=== PATIENT | male | born 1945 | race Caucasian/White ===

== ENCOUNTER → 2017-12-06 | Outpatient (CLI) | payer MEDICARE ==
--- NOTE | 2017-12-06 11:57 | MR ---
EXAMINATION TYPE: MR knee RT wo con DATE OF EXAM: 12/06/2017 COMPARISON: Plain film right knee advanced orthopedics dated 11/20/2017 HISTORY: Right knee pain TECHNIQUE: Multiplanar, multisequence imaging of the right knee is performed without IV contrast. FINDINGS: MEDIAL MENISCUS: There is increased signal within the substance of the posterior horn medial meniscus compatible some internal derangement. Anterior horn medial meniscus appears intact. LATERAL MENISCUS: Mild increased signals within the anterior and posterior horns lateral meniscus. Fi ndings could be related to some degenerative change or internal derangement. CRUCIATE LIGAMENTS: The anterior and posterior cruciate ligaments are intact and unremarkable. COLLATERAL LIGAMENTS: The medial collateral ligament and lateral collateral ligament complex are inta ct and unremarkable. EXTENSOR MECHANISM: Visualized quadriceps and patellar tendons are intact. EFFUSION: No significant suprapatellar joint effusion. POPLITEAL CYST: Popliteal cyst is present measuring approximately 1.7 x 5.4 cm. Multiple internal fi lling defects are evident. TRICOMPARTMENT SPACES: Medial and lateral compartments appear preserved. There is loss of the patello femoral joint space. CARTILAGE: There is loss of the patellar cartilage. Posterior superior posterior inferior patellar sp urring is present. The articular cartilage along the patellofemoral joint space on the femur appears intact. Medial and lateral compartment articular cartilage appears intact. BONE MARROW SIGNAL: No focal abnormal marrow signal is appreciated. OTHER: No additional significant abnormality is appreciated. IMPRESSION: 1. Popliteal cyst with multiple internal filling defects. Findings correlate with the plain film calc ifications. 2. Internal derangement posterior horn medial meniscus and to a lesser degree anterior and posterior horns lateral meniscus. 3. Severe loss of the posterior patellar articular cartilage. Remaining articular surfaces have a nor mal appearance.
== END | disposition home or self-care (01) ==
LOC: RADMRIMAIN 10:48
PROVIDERS: ATTEND Orthopaedic Surgery
DX: M71.21 Synovial cyst of popliteal space [Baker], right knee (principal); M23.321 Other meniscus derangements, posterior horn of medial meniscus, right knee; M23.341 Other meniscus derangements, anterior horn of lateral meniscus, right knee; M23.351 Other meniscus derangements, posterior horn of lateral meniscus, right knee; M94.8X6 Other specified disorders of cartilage, lower leg

== ENCOUNTER 2018-10-03 07:58 | Day surgery (SDC) | payer MEDICARE ==
[~2018-10-03 07:58] MED LIST: ALPRAZolam 0.25 MG TAB PO PRN; ALPRAZolam 0.5 MG TAB PO PRN; ASPIRIN 325 MG TAB PO STA; ATORVASTATIN 80 MG TAB PO STA; NITROGLYCERIN SL TABS 0.4 MG TAB SUBLINGUAL PRN; SODIUM CHLORIDE 0.9% 1,000 ML in EMPTY BAG 1 BAG IV ONE
[2018-10-03 09:00] LABS: Calcium 9.3 mg/dL (8.4-10.2); Potassium 4.1 mmol/L (3.5-5.1)
[2018-10-03 09:01] LABS: HCT 39.7 % (39.0-53.0); HGB 12.8 gm/dL (13.0-17.5); MCH 29.8 pg (25.0-35.0); MCHC 32.3 g/dL (31.0-37.0); MCV 92.1 fL (80.0-100.0); Mean Platelet Volume 6.8; Platelet Count 166 k/uL (150-450); RBC 4.32 m/uL (4.30-5.90); RDW 14.2 % (11.5-15.5); WBC 4.7 k/uL (3.8-10.6)
[2018-10-03] MEDS ORDERED: LIDOCAINE 1% INJ 10MG/ML (20 ML MDV) ONE (09:04)
[2018-10-03] MEDS ORDERED: fentaNYL (PF) 50 MCG/ML 2 ML AMP ONE (09:05)
[2018-10-03 09:25] LABS: Basophils # (M) 0.05 k/uL (0-0.2); Eosinophils # (M) 0.05 k/uL (0-0.7); Lymphocytes # (M) 1.13 k/uL (1.0-4.8); Monocytes # (M) 0.47 k/uL (0-1.0); Neutrophils # (M) 3.01 k/uL (1.3-7.7); Neutrophils % (M) 64 %; Nucleated Red Blood Cells 0 /100 WBC (0-0); Total Cells Counted 100
[2018-10-03] MEDS: MIDAZOLAM 2 MG/2 ML VIAL IVP ONE ×2 (09:44→10:31)
[2018-10-03] MEDS ORDERED: fentaNYL (PF) 50 MCG/ML 2 ML AMP IVP ONE (09:45)
[2018-10-03] MEDS ORDERED: LIDOCAINE 1% INJ 10MG/ML (20 ML MDV) SQ ONE (09:49)
[2018-10-03] MEDS ORDERED: BIVALIRUDIN BOLUS 250 MG/50 ML IV ONE (10:37)
[2018-10-03] MEDS ORDERED: BIVALIRUDIN 250 MG in SODIUM CHLORIDE 0.9% 50 ML IV ONE (10:37)
--- NOTE | 2018-10-03 10:40 | CC ---
CARDIAC CATHETERIZATION REPORT This is a 73-year-old gentleman with history of known coronary artery disease, status post angioplasty of LAD in 2013, who recently presented to me with exertional shortness of breath associated with moderate exertion and a stress test that showed ischemia involving inferior wall due to which she was advised to undergo cardiac catheterization. The patient had been explained of risks, benefits and alternatives, understood and accepted. PROCEDURE NOTE: After obtaining informed consent, left heart catheterization and coronary angiogram are performed via the right femoral artery using standard Antonio catheter. The patient tolerated the procedure well without any obvious immediate complication. Patient received moderate conscious sedation and total sedation time was 15 minutes. FINDINGS: 1. HEMODYNAMICS: Left ventricular end-diastolic pressure is 12 to 14 mm. There is no significant gradient across the aortic valve. 2. LEFT VENTRICULOGRAM: Left ventriculogram is not performed. 3. ANGIOGRAPHIC DATA: Left Main Coronary Artery: Left main coronary artery appears calcified but is free of significant stenosis. Divides into left anterior descending coronary artery and circumflex coronary artery. LAD was previously stented in the midportion that appears patent. small caliber diagonal branch that shows moderate diffuse disease in the proximal part. Circumflex coronary artery is a codominant system. There are collaterals going from the left system to the distal RCA. It gives off a large caliber OM branch that shows a focal 95% stenosis. This has progressed significantly compared to the prior cardiac catheterization. Right coronary artery is a large vessel that is calcified and appears diffusely diseased. There are multiple areas of stenosis noted. The mid RCA shows a 40% to 50% stenosis. The distal RCA shows a 40% stenosis. Divides into PDA and PLV. PDA is a very small vessel. PLV is a large caliber vessel that bifurcates further. There are collaterals feeding the distal PLV and ostial portion of the PLV shows a 70% to 80% stenosis, but this is a fairly small caliber vessel and the whole RCA is diffusely diseased. CONCLUSIONS: Patent stent within the LAD, significant stenosis involving the ostial portion of the OM branch at its worst it seems to be a 90% to 95% stenosis and diffuse moderate to severe disease involving the right coronary artery. PLAN: I am going to review the angiographic data with Dr. Alexys Ahmadi the on-call congressional representative and consider angioplasty of the OM branch. I reviewed the angiographic data with the patient and talked to him about his treatment options. He understands and is in agreement with the plan. MMMARCUSL / IJN: [id number] /
--- NOTE | 2018-10-03 10:46 | LTR ---
October 03, 2018 Re: Von Ennis Dear Dmitriy: I performed cardiac catheterization on Von Ennis. A detailed catheterization note is enclosed for your records. In brief, the cardiac catheterization showed patent stent within the LAD, severe stenosis involving the OM branch and severe stenosis involving the right coronary artery. We will consider angioplasty of the OM branch at this time. Thank you for allowing me to participate in the care of this pleasant gentleman. Sincerely, MD ARNIE Allred / CRESENCIO: [id number] /
[2018-10-03] MEDS ORDERED: IOPAMIDOL-370 125ML BTL INJ ONE (10:48)
[2018-10-03] MEDS: NITROGLYCERIN 1000MCG/10ML SYRINGE INTRACORON ONE ×2 (11:12→11:14)
[2018-10-03] MEDS ORDERED: TICAGRELOR 90 MG TAB ONE (11:21)
[2018-10-03] MEDS ORDERED: TICAGRELOR 90 MG TAB PO ONE (11:23)
[2018-10-03] MEDS ORDERED: IOPAMIDOL-370 100ML BTL INJ ONE (11:24)
[2018-10-03] MEDS ORDERED: NITROGLYCERIN SL TABS 0.4 MG TAB SUBLINGUAL PRN (11:27)
[2018-10-03] MEDS ORDERED: MAG HYDROX/AL HYDROX/SIMETH 30 ML CUP PO PRN (11:27)
[2018-10-03] MEDS ORDERED: ZOLPIDEM 5 MG TAB PO PRN (11:27)
[2018-10-03] MEDS ORDERED: ATROPINE SULFATE 0.1 MG/ML 10ML SYRINGE IV PRN (11:27)
[2018-10-03] MEDS ORDERED: RX INFO: IV CONTRAST WAS GIVEN 1 EACH MISC MISCELLANE PRN (11:27)
--- NOTE | 2018-10-03 11:58 | PTCA ---
PERCUTANEOUSTRANS CORORONARY ANGIOGRAPHY DATE OF SERVICE: 10/03/2018. PROCEDURE: PTCA and stenting of a complex tortuous circumflex marginal coronary artery. PERFORMED BY: Dr. Tammy Ahmadi. Moderate conscious sedation time was 44 minutes. The patient was administered Versed, oxygen saturation, hemodynamics and EKG were monitored closely. CLINICAL INFORMATION: Mr. Ennis was admitted to the hospital because of an abnormal stress test by Dr. Daniel who performed cardiac cath which revealed that he had a patent LAD that was stented in 2012. He now had a significant lesion in the circumflex marginal, very tortuous and difficult lesion with calcification. He also has disease in the PLV branch of the dominant RCA as well. He was advised intervention of a circumflex marginal that was performed in the same setting. PROCEDURE NOTE: The existing 6-Spanish introducer in the right femoral artery was used to perform the procedure. I used a standard left Antonio guide catheter to cannulate the left coronary artery. I used initially a Whisper wire to cross the lesion, wire was kept distally. I tried to advance a 2.5 balloon which was very difficult because of the acute bend as the obtuse marginal came off from the main circumflex. I used a 1.5 balloon. With this, I made some progress. I gave some inflation. Then I went to a 2.2 balloon, which was a Trek balloon and then eventually a 2.5 balloon. Prior to the 2.5 balloon, I advanced another run-through wire alongside the Whisper wire and used the run-through wire as the wire over which I advanced the 2.5 balloon. After predilatation, I then deployed a 2.2 caliber [place] 15 mm long stent at 14 atmospheres. I then post-dilated this on extent with a 2.5 caliber 15 mm NC Trek balloon up to 14 atmospheres. Patient did not have chest pain nor EKG changes. Excellent angiographic result was achieved. The sheath was taken out and Angio-Seal device used to secure hemostasis. He received Angiomax bolus and infusion as per protocol and also received Brilinta 180 mg daily. He will be on Plavix, aspirin, statins, and beta blockers and will be hopefully discharged tomorrow if he remains stable. Findings were discussed with the patient and family. Excellent angiographic result without complication was achieved. This was a technically very difficult procedure. Two wires were used to gain traction. MMODL / IJN: [id number] /
[2018-10-03 15:26] VITALS: RESP 16
[2018-10-03] MEDS: SODIUM CHLORIDE 0.9% 1,000 ML IV SCH (17:30)
[2018-10-03] MEDS ORDERED: TAMSULOSIN 0.4 MG CAP.ER.24H PO SCH (21:00)
[2018-10-03] MEDS ORDERED: ATORVASTATIN 80 MG TAB PO SCH (21:00)
[2018-10-03 21:10] VITALS: BMI 28.7
[2018-10-03] MEDS: hydrALAZINE HCL 50 MG TAB PO SCH (21:12)
[2018-10-03] MEDS: METOPROLOL TARTRATE 25 MG TAB PO SCH (21:12)
[2018-10-04 04:30] VITALS: BP 136/68; PULSE 55; TEMP 97.8
[2018-10-04 06:26] LABS: Basophils % (A) 0 %; Eosinophils # (A) 0.2 k/uL (0-0.7); Eosinophils % (A) 3 %; HCT 35.8 % (39.0-53.0); HGB 11.6 gm/dL (13.0-17.5); Lymphocytes # (A) 0.9 k/uL (1.0-4.8); Lymphocytes % (A) 16 %; MCHC 32.5 g/dL (31.0-37.0); MCV 92.1 fL (80.0-100.0); Mean Platelet Volume 6.8; Monocytes # (A) 0.4 k/uL (0-1.0); Monocytes % (A) 7 %; Neutrophils # (A) 3.7 k/uL (1.3-7.7); Neutrophils % (A) 70 %; Platelet Count 160 k/uL (150-450); RBC 3.88 m/uL (4.30-5.90); RDW 14.3 % (11.5-15.5); WBC 5.3 k/uL (3.8-10.6)
[2018-10-04 06:47] LABS: Calcium 8.5 mg/dL (8.4-10.2); Potassium 4.1 mmol/L (3.5-5.1)
[2018-10-04] MEDS: SODIUM CHLORIDE 0.9% 1,000 ML IV SCH (06:54)
[2018-10-04] MEDS: hydrALAZINE HCL 50 MG TAB PO SCH (08:16)
[2018-10-04] MEDS: METOPROLOL TARTRATE 25 MG TAB PO SCH (08:16)
--- NOTE | 2018-10-04 08:17 | DS ---
DISCHARGE SUMMARY DATE OF ADMISSION: 10/03/2018. DATE OF DISCHARGE: 10/04/2018. FINAL DIAGNOSIS: Shortness of breath with abnormal stress test. PROCEDURES PERFORMED: 1. Left heart catheterization. 2. Angioplasty with stent placement of OM branch. HOSPITAL COURSE: This is a 73-year-old gentleman with known coronary artery disease, status post prior angioplasty of LAD, who presented to me with exertion, shortness of breath and an abnormal stress test. His cardiac catheterization revealed patent stent within the LAD with severe stenosis involving the ostial portion of the OM branch. He also had significant disease in the PLV branch, which was noted on the prior catheterization. Patient underwent angioplasty with stent placement of the OM branch and has done well this morning. CONDITION AT THE TIME OF DISCHARGE: Patient is stable clinically, he is free of symptoms. EKG is within normal limits. Right groin is free of bleeding, bruit, hematoma. Foot pulses are intact. Vital signs are stable. Chest exam reveals good air entry bilaterally. Heart exam reveals first and second heart sounds. No gallop. Exam of extremities did not reveal any edema. EKGs as described above. LABS: Show a hemoglobin of 11.6, potassium is 4.1, creatinine is 1. Blood sugar is 85. DISCHARGE MEDICATIONS: The patient will go home on aspirin, Ritalin 50 t.i.d., Norvasc 10 daily, Zocor 40 daily, Lopressor 25 b.i.d., Hyzaar and Flomax. He already has sublingual nitroglycerin at home and he will get a prescription for Plavix 75 mg daily. FOLLOWUP: Patient will be followed up in my office in [place] in 2 weeks time. MMODL / IJN: [id number] /
[2018-10-04] MEDS ORDERED: CLOPIDOGREL 75 MG TAB PO SCH (09:00)
[2018-10-04] MEDS ORDERED: LOSARTAN-HCTZ 50-12.5 MG 1 EACH TAB PO SCH (09:00)
[2018-10-04] MEDS ORDERED: ASPIRIN 81 MG PO SCH (09:00)
[2018-10-04] MEDS ORDERED: amLODIPine 10 MG TAB PO SCH (09:00)
== END 2018-10-04 09:07 | disposition home or self-care (01) ==
LOC: CATHCVL 07:58 → 3SCARD 11:18 → CATHCVL 10-04 09:07
PROVIDERS: ATTEND Internal Medicine Cardiovascular Disease
DX: I25.10 Atherosclerotic heart disease of native coronary artery without angina pectoris (principal); I25.2 Old myocardial infarction; I77.1 Stricture of artery; R94.39 Abnormal result of other cardiovascular function study; I10 Essential (primary) hypertension; E78.2 Mixed hyperlipidemia; R93.1 Abnormal findings on diagnostic imaging of heart and coronary circulation; Z79.899 Other long term (current) drug therapy; Z72.0 Tobacco use; Z95.5 Presence of coronary angioplasty implant and graft
CPT/HCPCS: 93458; 80048 ×2; 85025 ×2; C9600; C1760; C1769 ×5; C1887; C1725 ×4; C1894; C1874; J2250; J2001; J3010; J0583; Q9967 ×2

== ENCOUNTER → 2020-10-27 | Outpatient (CLI) | payer MEDICARE ==
--- NOTE | 2020-10-27 21:43 | MR ---
EXAMINATION TYPE: MR shoulder RT wo con DATE OF EXAM: 10/27/2020 COMPARISON: None. HISTORY: Pain for 3 months with difficulty raising overhead, evaluate rotator cuff, bursitis R should er TECHNIQUE: Multiplanar, multisequence imaging of the right shoulder is performed without contrast. FINDINGS: Rotator Cuff: Thinning of the distal supraspinatus tendon with tiny articular surface tear measuring 3 mm transversely by 6 mm AP diameter sagittal image 23. Infraspinatus tendon shows increased signal and smaller foci of tearing at the humeral head attachment. Subscapularis tendon is intact with incre ased signal and thickening and surrounding fluid. Rotator cuff muscle bulk is preserved. Acromioclavicular Joint: Moderate to severe capsular hypertrophy with possible underlying fat plane. Mild narrowing and spurring Glenohumeral Joint: Moderate to severe narrowing with synovial thickening. Small joint effusion. No s ignificance spurring. Labrum: The and superior labrum shows increased signal consistent with degenerative tear.. Biceps Tendon: The long head of biceps is in normal location within bicipital groove. Areas of increa sed signal extra-articular portion axial image 9 for reference is felt present, similar increased sig nal intra-articular portion sagittal image 15 before biceps anchor noted. Bone marrow signal: Few subchondral cysts in the central slightly posterior glenoid axial image 12. Other: No additional significant abnormality is appreciated. IMPRESSION: 1. Articular surface partial tearing of the distal supraspinatus and infraspinatus tendons. Tendinosi s of the subscapularis tendon. Partial tearing of portions of the long head of biceps tendon. 2. Moderate to advanced degenerative changes as detailed above. Underlying impingement.
== END | disposition home or self-care (01) ==
LOC: RADMRIMAIN 07:03
PROVIDERS: ATTEND Orthopaedic Surgery
DX: M19.011 Primary osteoarthritis, right shoulder (principal)

== ENCOUNTER → 2022-05-30 | Day surgery (SDC) | payer MEDICARE ==
[~2022-05-30] MED LIST changes: +ACETAMINOPHEN TAB 500 MG TAB PO PRN; -ALPRAZolam 0.25 MG TAB PO PRN; -ALPRAZolam 0.5 MG TAB PO PRN; -ASPIRIN 325 MG TAB PO STA; -ATORVASTATIN 80 MG TAB PO STA; +GABAPENTIN 300 MG CAP PO PRN; +GLYCOPYRROLATE 0.2 MG/ML 2 ML VIAL ONE; +HYDROcodone/APAP 7.5-325MG 1 EACH TAB PO PRN; +HYDROmorphone (PF) 1 MG/ML ONE; +HYDROmorphone 0.5 MG/0.5 ML SYRINGE IVP PRN; +LACTATED RINGERS 1,000 ML IV ONE; +LACTATED RINGERS 1,000 ML IV SCH; +LIDOCAINE 1% (10MG/ML) FOR IV START INTRADERMA PRN; +LIDOCAINE 2% INJ 20 MG/ML (2 ML VIAL) ONE; +MELOXICAM 7.5 MG TAB PO PRN; +NALOXONE 0.4 MG/ML 1 ML VIAL IV PRN; +NEOSTIGMINE 1 MG/ML 10 ML VIAL ONE; -NITROGLYCERIN SL TABS 0.4 MG TAB SUBLINGUAL PRN; +ONDANSETRON 4 MG/2 ML VIAL IVP ONE; +ONDANSETRON 4 MG/2 ML VIAL IVP PRN; +PROPOFOL 10 MG/ML 20 ML VIAL IV ONE; +ROCURONIUM 10 MG/ML (5 ML VIAL) IV ONE; +ROPIVACAINE 5 MG/ML 30 ML VIAL MISCELLANE ONE; +SODIUM CHLORIDE 0.9% 1,000 ML IV SCH; -SODIUM CHLORIDE 0.9% 1,000 ML in EMPTY BAG 1 BAG IV ONE; +SUCCINYLCHOLINE CHLORIDE 200 MG/10 ML VIAL IV ONE; +TRANEXAMIC ACID IN NACL,ISO-OS 1,000 MG in SALINE 1 100ML.BAG IVPB PRN; +TRANEXAMIC ACID IN NACL,ISO-OS 1,000 MG/100 ML BAG ONE; +ceFAZolin 1,000 MG in SODIUM CHLORIDE 0.9% 1,000 ML IRRIGATION ONE; +ePHEDrine 50 MG/ML 1 ML VIAL ONE; +fentaNYL (PF) 50 MCG/ML 2 ML AMP ONE
--- NOTE | 2022-05-30 08:14 | P.OP ---
Date of Procedure: 05/30/22 Preoperative Diagnosis: Severe Osteoarthritis right hip Postoperative Diagnosis: Severe osteoarthritis right hip Procedure(s) Performed: Right total hip arthroplasty with a direct anterior approach Implants: [employer] Polarstem standard size 6 [employer] R3, 3 hole hemispherical acetabular shell, 54 mm [employer] Reflection 6.5 mm cancellus screw, 20 mm 2 [employer] R3, XLPE 20 acetabular liner [employer] Oxinium femoral head 36 m, +4 All components were press-fit. The articulation is Oxinium on polyethylene. Anesthesia: GETA Surgeon: Brad Jeter Power Grader Operator #1: Eloise Martinez Estimated Blood Loss (ml): 250 Pathology: other (Femoral head) Condition: stable Disposition: PACU Indications for Procedure: After failure of conservative treatment we discussed the surgical and nonsurgical treatment options at length. Patient wishes to proceed with a total hip arthroplasty with a direct anterior approach. Complications specific to this procedure were discussed at length, including but not limited to infection, leg length discrepancy, dislocation, nerve injury, and fracture. Covid-19 was also discussed at length with the patient, and they are aware of the current policies and procedures. The patient was given the option of delaying surgery, but they elect to proceed knowing these risks. Patient is aware of all these complications and informed consent was obtained Operative Findings: The operative findings are consistent with severe osteoarthritis of the right hip Description of Procedure: Patient was seen and evaluated in the preoperative area and the consent was reviewed. The operative site was marked with a skin marker. The patient was then brought to the operating room and given preoperative antibiotics intravenously. 1 g of Tranexamic acid was also given intravenously. A general anesthetic was administered by the anesthesia department. The patient was then placed on the Moran table with the bony prominences well-padded. The hip area was then prepped with a ChloraPrep solution and draped in the usual sterile fashion. A universal timeout was then performed, which confirmed the patient's name, surgical site, ALLERGIES, and procedure being performed on the consent. Next the incision site was located at 1 cm distal and 2 cm lateral to the anterior superior iliac spine. The skin and subcutaneous tissues were sharply incised. Incision was carefully dissected down to the fascia overlying the tensor fascia rajendra muscle. This fascia was then incised in line with the incision. Care was taken to stay laterally in order to avoid injuring the lateral femoral cutaneous nerve. Next, using blunt finger dissection, the tensor fascia rajendra muscle was dissected off its investing fascia. The muscle was then carefully retracted laterally with a cobra retractor over the lateral neck of the femur. Next, the circumflex vessels were identified and cauterized using the AquaMantis device. The anterior hip capsule was then exposed. The capsule was then opened and an inverted T fashion. Cobra retractors were then placed intracapsularly. The retractors were maintained intracapsular throughout the procedure. The proximal femur was then visualized. Fluoroscopic x-rays were then taken in order to evaluate the preoperative leg lengths. A small amount of traction was placed on the leg. The femoral neck was then osteotomized at the appropriate level above the lesser trochanter. A small wedge of bone was then removed from the remaining femoral head. Next, using a corkscrew the femoral head was removed from the acetabulum. On gross visual inspection, the femoral head had complete loss of articular cartilage and multiple periarticular osteophytes. The femoral head was then measured. Attention was then turned to the acetabulum. The acetabulum was exposed and any remaining labrum was excised. Sequential reaming of the acetabulum was performed using fluoroscopic guidance until there was a good bed of bleeding cancellus bone. When the appropriate size was reached, a trial was then placed. The position and fit of the trial was checked with fluoroscopy. The trial was then removed. Then, using fluoroscopic guidance, the final implant was impacted at 20 of anteversion and 40 of abduction, and fully seated in the acetabulum. 2 screws were then placed in the acetabulum. Again fluoroscopy was used to check position of the screws. Next, the liner was then impacted, with a 20 elevated liner located in the anterior superior quadrant. Component locking was confirmed. Attention was then directed to the femur. With the aid of the Moran table, the femur was externally rotated to approximately 130, extended, and adducted under the opposite leg. A side hook was then placed under the proximal femur, and the side hook elevator was used to elevate the proximal femur while releasing the capsule. Retractors were then placed. A capsular release was performed, as w ell as a release of the conjoined tendon, which afforded excellent visualization of the proximal femur. Next, a box osteotome was used to lateralize the proximal femur. A merchandise displayer was then used to locate the femoral canal. Sequential broaching was then performed with appropriate size which afforded excellent fixation in the proximal femur. A trial was then placed with appropriate head and neck, and the hip was gently reduced with the aid of the Moran table. Fluoroscopy was then used to check position of the components, as well as to ensure equal leg lengths. The hip was then gently dislocated and the trials were then removed. Final implants were then impacted and the hip was again reduced. Final fluoroscopic x-rays confirmed that the components were in anatomic position, as well as equal leg lengths. The hip was also taken through range of motion, and found to be stable. The hip was then copiously irrigated with antibiotic solution with pulsatile lavage. The hip was then irrigated with Irrisept solution. The soft tissues were then injected with a ropivacaine solution. A second dose of 1 g of Tranexamic acid was also given intravenously. The fascia was then closed with 2-0 strata fix suture. The subcutaneous tissue was closed with 3-0 Vicryl. The subcuticular tissue was closed with 3-0 strata fix suture. The skin was then closed with Exofin skin glue. After the glue and dried, and Optifoam silver impregnated dressing was applied. The patient was then transferred to the recovery room in stable condition. The payroll administrative assistant RO West was required due to the complexity of surgery, and the need for skilled surgical rn for positioning, draping, exposure, retraction, and closure of the wound.
[2022-05-30 08:47] VITALS: TEMP 96.9
[2022-05-30] MEDS: HYDROmorphone 0.5 MG/0.5 ML SYRINGE IVP PRN ×2 (08:55→09:17)
--- NOTE | 2022-05-30 09:26 | XR ---
EXAMINATION TYPE: XR Hip Limited RT DATE OF EXAM: 05/30/2022 CLINICAL HISTORY: Right hip pain and osteoarthritis. TECHNIQUE: Single AP portable view of right hip is obtained immediately postoperatively. COMPARISON: None. FINDINGS: Metallic hardware from right hip arthroplasty is seen and appears satisfactory in alignment and position. There is evidence of recent surgery with subcutaneous gas noted laterally. IMPRESSION: Metallic hardware from right hip arthroplasty is satisfactory in position.
[2022-05-30 10:12] VITALS: RESP 16
--- NOTE | 2022-05-30 10:51 | FL ---
EXAMINATION TYPE: FL guidance operating room, XR Hip Limited RT DATE OF EXAM: 05/30/2022 CLINICAL HISTORY: Right hip pain and osteoarthritis. TECHNIQUE: Fluoroscopy. Limited intraoperative views right hip. COMPARISON: None. FINDINGS: Fluoroscopic guidance was provided during right hip replacement procedure performed by Dr. Jeter. A total of 23 seconds of fluoroscopic time was utilized during the procedure and 3 spot i mages was acquired. Intraoperative images show metallic hardware from total right hip arthroplasty satisfactory in positi on on frontal projection. IMPRESSION: As Above.
[2022-05-30 12:20] VITALS: BP 99/38; PULSE 48
== END | disposition home health service (06) ==
LOC: OR 05:34
PROVIDERS: ATTEND Orthopaedic Surgery
DX: M16.11 Unilateral primary osteoarthritis, right hip (principal); M25.751 Osteophyte, right hip; I10 Essential (primary) hypertension; F10.99 Alcohol use, unspecified with unspecified alcohol-induced disorder; Z87.891 Personal history of nicotine dependence; Z79.899 Other long term (current) drug therapy; Z82.49 Family history of ischemic heart disease and other diseases of the circulatory system
CPT/HCPCS: 27130; 97110; 97161; 86900; 86901; 86850; 88300; 73501; J0330; J2710; J0690 ×2; J2405; J3010; J1170 ×2; J2795; J2704; J2001